=== PATIENT | male | born 1985 | race Caucasian/White ===

== ENCOUNTER 2021-11-09 08:34 | Inpatient (IN) | payer OTHER ==
[2021-11-09 09:22] VITALS: BMI 28.5
[2021-11-09] MEDS ORDERED: ACETAMINOPHEN 325 MG TABLET (FP) PO PRN ×2 (09:46)
[2021-11-09] MEDS ORDERED: IBUPROFEN 400 MG TABLET (FP) PO PRN (09:46)
[2021-11-09] MEDS ORDERED: LOPERAMIDE HCL 2 MG CAPSULE PO PRN (09:46)
[2021-11-09] MEDS ORDERED: MAGNESIUM CITRATE 300 ML BOTTLE PO PRN (09:46)
[2021-11-09] MEDS ORDERED: MAGNESIUM HYDROX 2400MG/30ML ORAL SUSPENSION 30 ML CUP PO PRN (09:46)
[2021-11-09] MEDS ORDERED: MAG HYDROX/AL HYDROX/SIMETH 30 ML UNIT-DOSE CUP PO PRN (09:46)
[2021-11-09] MEDS ORDERED: IBUPROFEN 600 MG TABLET (FP) PO PRN (09:46)
[2021-11-09] MEDS ORDERED: ONDANSETRON *ODT* 4 MG TABLET SL PRN (09:46)
[2021-11-09] MEDS ORDERED: BISMUTH SUBSALICYLATE 524 MG/30 ML PO PRN (09:46)
[2021-11-09] MEDS ORDERED: DICYCLOMINE HCL 10 MG CAPSULE PO PRN (09:46)
[2021-11-09] MEDS ORDERED: NICOTINE 10 MG CARTRIDGE (INHALER) IH PRN (09:46)
[2021-11-09] MEDS ORDERED: BENZOCAINE/MENTHOL (CHLORASEPTIC ) LOZENGE MM PRN (09:46)
[2021-11-09] MEDS ORDERED: METHOCARBAMOL 500 MG TABLET PO PRN (09:46)
[2021-11-09] MEDS ORDERED: chlordiazePOXIDE HCL 25 MG CAPSULE PO PRN (09:46)
[2021-11-09] MEDS ORDERED: PRENATAL VITAMINS W/ FOLIC ACID TABLET (FP) PO SCH (10:00)
[2021-11-09] MEDS: hydrOXYzine PAMOATE 25 MG CAPSULE (FP) PO SCH ×4 (11:18→22:47)
[2021-11-09] MEDS: chlordiazePOXIDE HCL 25 MG CAPSULE PO SCH ×3 (11:19→22:46)
[2021-11-09 14:20] LABS: HEMATOCRIT 45.5 % (35.4-49); HEMOGLOBIN 15.4 GM/dL (11.7-16.9); MCH 33.2 pg (25.7-33.7); MCHC 33.8 g/dl (32.0-35.9); MEAN CELL VOLUME 98.1 fl (80-96); MEAN PLT VOLUME 9.3 fl (7.5-11.1); PLATELET COUNT 83 10^3/uL (134-434); RBC 4.63 M/mm3 (4.00-5.60); RDW 13.1 % (11.9-15.9); WHITE BLOOD COUNT 5.5 K/mm3 (4.0-10.0)
[2021-11-09 14:34] LABS: CALCIUM 9.9 mg/dL (8.5-10.1)
[2021-11-09 14:35] LABS: ALBUMIN 4.2 g/dl (3.4-5.0); BLOOD UREA NITROGEN 13.3 mg/dL (7-18)
[2021-11-09 14:38] LABS: CREATININE 0.7 mg/dL (0.55-1.3)
[2021-11-09 14:40] LABS: TOT PROT 8.6 g/dl (6.4-8.2)
[2021-11-09] MEDS ORDERED: THIAMINE HCL 100 MG TABLET (FP) PO SCH (22:00)
[2021-11-09] MEDS ORDERED: MELATONIN 5 MG TABLETS PO SCH (22:00)
[2021-11-09] MEDS ORDERED: SUVOREXANT 10 MG TABLET PO PRN (22:00)
[2021-11-10 05:02] VITALS: BP 145/102; PULSE 94; RESP 18; TEMP 97.1
[2021-11-10] MEDS ORDERED: LORazepam 1 MG TABLET PO ONE (05:15)
[2021-11-10] MEDS ORDERED: LACTULOSE 20 GM/30 ML UDC (FOR ORAL USE ONLY) PO ONE (05:16)
[2021-11-10] MEDS ORDERED: LORazepam 1 MG TABLET PO PRN (05:22)
[2021-11-10] MEDS: chlordiazePOXIDE HCL 25 MG CAPSULE PO SCH (07:45)
[2021-11-10] MEDS: hydrOXYzine PAMOATE 25 MG CAPSULE (FP) PO SCH (07:46)
[2021-11-10] MEDS ORDERED: LACTULOSE 20 GM/30 ML UDC (FOR ORAL USE ONLY) PO SCH (10:00)
[2021-11-10] MEDS ORDERED: LORazepam 1 MG TABLET PO SCH (11:00)
[2021-11-11] MEDS ORDERED: chlordiazePOXIDE HCL 25 MG CAPSULE PO SCH (05:00)
[2021-11-12] MEDS ORDERED: chlordiazePOXIDE HCL 10 MG CAPSULE PO PRN
[2021-11-12] MEDS ORDERED: LORazepam 1 MG TABLET PO SCH (05:00)
[2021-11-12] MEDS ORDERED: chlordiazePOXIDE HCL 10 MG CAPSULE PO SCH (05:00)
[2021-11-13] MEDS ORDERED: LORazepam 0.5 MG TABLET PO PRN
[2021-11-13] MEDS ORDERED: LORazepam 0.5 MG TABLET PO SCH (05:00)
[2021-11-13] MEDS ORDERED: chlordiazePOXIDE HCL 10 MG CAPSULE PO SCH (05:00)
[2021-11-14] MEDS ORDERED: chlordiazePOXIDE HCL 10 MG CAPSULE PO ONE (05:00)
[2021-11-14] MEDS ORDERED: LORazepam 0.5 MG TABLET PO ONE (05:00)
== END 2021-11-10 11:50 | disposition short-term general hospital (02) | DRG 775 ==
LOC: YASAS 08:34 → Y6N 10:37
PROVIDERS: ADMIT Allergy & Immunology; ATTEND Surgery
PROC: HZ2ZZZZ Detoxification Services for Substance Abuse Treatment (ICD-10-PCS; principal; 2021-11-09)
DX: F10.230 Alcohol dependence with withdrawal, uncomplicated (principal); F10.282 Alcohol dependence with alcohol-induced sleep disorder; F10.280 Alcohol dependence with alcohol-induced anxiety disorder; F90.9 Attention-deficit hyperactivity disorder, unspecified type; F41.9 Anxiety disorder, unspecified; F32.A Depression, unspecified; J45.20 Mild intermittent asthma, uncomplicated; Z87.891 Personal history of nicotine dependence; Z56.0 Unemployment, unspecified
CPT/HCPCS: 36415; 80053; 85027; 86780; C9803-CS; U0003; U0005

== ENCOUNTER 2021-11-10 06:01 | Emergency (ER) | payer OTHER ==
[2021-11-10 06:10] VITALS: BP 147/103; PULSE 114; RESP 20; TEMP 98.4; BMI 27.1
== END 2021-11-10 08:08 | disposition home or self-care (01) ==
LOC: JER 06:01
DX: F10.20 Alcohol dependence, uncomplicated (principal); R74.01 Elevation of levels of liver transaminase levels
CPT/HCPCS: 99281-25

== ENCOUNTER 2021-11-12 08:16 | Inpatient (IN) | payer OTHER ==
[2021-11-12 10:02] VITALS: BMI 29.5
[2021-11-12] MEDS ORDERED: BENZOCAINE/MENTHOL (CHLORASEPTIC ) LOZENGE MM PRN (11:44)
[2021-11-12] MEDS ORDERED: MAGNESIUM HYDROX 2400MG/30ML ORAL SUSPENSION 30 ML CUP PO PRN (11:44)
[2021-11-12] MEDS ORDERED: MAGNESIUM CITRATE 300 ML BOTTLE PO PRN (11:44)
[2021-11-12] MEDS ORDERED: LOPERAMIDE HCL 2 MG CAPSULE PO PRN (11:44)
[2021-11-12] MEDS ORDERED: ONDANSETRON *ODT* 4 MG TABLET SL PRN (11:44)
[2021-11-12] MEDS ORDERED: BISMUTH SUBSALICYLATE 524 MG/30 ML PO PRN (11:44)
[2021-11-12] MEDS ORDERED: IBUPROFEN 400 MG TABLET (FP) PO PRN (11:44)
[2021-11-12] MEDS ORDERED: chlordiazePOXIDE HCL 25 MG CAPSULE PO PRN (11:44)
[2021-11-12] MEDS ORDERED: ACETAMINOPHEN 325 MG TABLET (FP) PO PRN ×2 (11:44)
[2021-11-12] MEDS ORDERED: IBUPROFEN 600 MG TABLET (FP) PO PRN (11:44)
[2021-11-12] MEDS ORDERED: MAG HYDROX/AL HYDROX/SIMETH 30 ML UNIT-DOSE CUP PO PRN (11:44)
[2021-11-12] MEDS ORDERED: DICYCLOMINE HCL 10 MG CAPSULE PO PRN (11:44)
[2021-11-12] MEDS: METHOCARBAMOL 500 MG TABLET PO PRN (12:38)
[2021-11-12] MEDS: chlordiazePOXIDE HCL 25 MG CAPSULE PO SCH ×3 (12:39→22:07)
[2021-11-12] MEDS: PRENATAL VITAMINS W/ FOLIC ACID TABLET (FP) PO SCH (13:22)
[2021-11-12] MEDS: hydrOXYzine PAMOATE 25 MG CAPSULE (FP) PO SCH ×3 (13:22→22:08)
[2021-11-12] MEDS: NICOTINE 10 MG CARTRIDGE (INHALER) IH PRN (21:20)
[2021-11-12] MEDS ORDERED: MELATONIN 5 MG TABLETS PO SCH (22:00)
[2021-11-12] MEDS: THIAMINE HCL 100 MG TABLET (FP) PO SCH (22:08)
[2021-11-13] MEDS: chlordiazePOXIDE HCL 25 MG CAPSULE PO SCH ×4 (05:23→22:01)
[2021-11-13] MEDS: hydrOXYzine PAMOATE 25 MG CAPSULE (FP) PO SCH ×5 (05:23→22:02)
[2021-11-13] MEDS: NICOTINE 10 MG CARTRIDGE (INHALER) IH PRN ×4 (09:22→22:02)
[2021-11-13] MEDS: PRENATAL VITAMINS W/ FOLIC ACID TABLET (FP) PO SCH (10:30)
[2021-11-13] MEDS: METHOCARBAMOL 500 MG TABLET PO PRN (10:30)
[2021-11-13 11:06] LABS: ALBUMIN 3.5 g/dl (3.4-5.0); BLOOD UREA NITROGEN 6.8 mg/dL (7-18); CALCIUM 9.3 mg/dL (8.5-10.1)
[2021-11-13 11:08] LABS: HEMATOCRIT 40.2 % (35.4-49); HEMOGLOBIN 13.5 GM/dL (11.7-16.9); MCH 33.3 pg (25.7-33.7); MCHC 33.5 g/dl (32.0-35.9); MEAN CELL VOLUME 99.4 fl (80-96); MEAN PLT VOLUME 9.3 fl (7.5-11.1); PLATELET COUNT 119 10^3/uL (134-434); RBC 4.04 M/mm3 (4.00-5.60); RDW 12.6 % (11.9-15.9); WHITE BLOOD COUNT 3.5 K/mm3 (4.0-10.0)
[2021-11-13 11:09] LABS: CREATININE 0.7 mg/dL (0.55-1.3)
[2021-11-13 11:10] LABS: BILIRUBIN,TOTAL 2.2 mg/dL (0.2-1); TOT PROT 7.3 g/dl (6.4-8.2)
[2021-11-13] MEDS: amLODIPine BESYLATE 2.5 MG TABLET (FP) PO SCH (12:03)
[2021-11-13] MEDS ORDERED: chlordiazePOXIDE HCL 25 MG CAPSULE PO ONE (14:00)
[2021-11-13] MEDS: SUVOREXANT 10 MG TABLET PO PRN (22:00)
[2021-11-13] MEDS: THIAMINE HCL 100 MG TABLET (FP) PO SCH (22:02)
[2021-11-14] MEDS: chlordiazePOXIDE HCL 25 MG CAPSULE PO SCH ×2 (05:27→10:53)
[2021-11-14] MEDS: hydrOXYzine PAMOATE 25 MG CAPSULE (FP) PO SCH ×6 (05:28→22:05)
[2021-11-14] MEDS: PRENATAL VITAMINS W/ FOLIC ACID TABLET (FP) PO SCH (08:59)
[2021-11-14] MEDS: METHOCARBAMOL 500 MG TABLET PO PRN (08:59)
[2021-11-14] MEDS: amLODIPine BESYLATE 2.5 MG TABLET (FP) PO SCH (08:59)
[2021-11-14] MEDS: NICOTINE 10 MG CARTRIDGE (INHALER) IH PRN ×2 (09:04→17:47)
[2021-11-14] MEDS: LORazepam 2 MG TABLET PO SCH ×2 (17:42→22:02)
[2021-11-14] MEDS: NICOTINE 21 MG/24 HOURS TOPICAL PATCH TD SCH (19:50)
[2021-11-14] MEDS: LORazepam 1 MG TABLET PO PRN (19:58)
[2021-11-14] MEDS: THIAMINE HCL 100 MG TABLET (FP) PO SCH (22:02)
[2021-11-14] MEDS: SUVOREXANT 10 MG TABLET PO PRN (22:04)
[2021-11-15] MEDS ORDERED: chlordiazePOXIDE HCL 10 MG CAPSULE PO PRN
[2021-11-15] MEDS ORDERED: chlordiazePOXIDE HCL 10 MG CAPSULE PO SCH (05:00)
[2021-11-15] MEDS: LORazepam 1 MG TABLET PO SCH ×4 (05:14→22:14)
[2021-11-15] MEDS: hydrOXYzine PAMOATE 25 MG CAPSULE (FP) PO SCH ×5 (05:14→22:14)
[2021-11-15] MEDS: NICOTINE 10 MG CARTRIDGE (INHALER) IH PRN ×2 (05:16→20:29)
[2021-11-15 09:42] LABS: CALCIUM 9.5 mg/dL (8.5-10.1)
[2021-11-15 09:43] LABS: ALBUMIN 3.5 g/dl (3.4-5.0); BLOOD UREA NITROGEN 10.3 mg/dL (7-18)
[2021-11-15 09:46] LABS: CREATININE 0.7 mg/dL (0.55-1.3)
[2021-11-15 09:48] LABS: BILIRUBIN,TOTAL 0.7 mg/dL (0.2-1); TOT PROT 7.1 g/dl (6.4-8.2)
[2021-11-15] MEDS: PRENATAL VITAMINS W/ FOLIC ACID TABLET (FP) PO SCH (10:09)
[2021-11-15] MEDS: METHOCARBAMOL 500 MG TABLET PO PRN ×2 (10:09→22:16)
[2021-11-15] MEDS: amLODIPine BESYLATE 2.5 MG TABLET (FP) PO SCH (10:09)
[2021-11-15] MEDS: NICOTINE 21 MG/24 HOURS TOPICAL PATCH TD SCH (10:13)
[2021-11-15 13:26] VITALS: RESP 18
[2021-11-15] MEDS: propRANOLol HCL 10 MG TABLET PO SCH ×2 (15:20→22:47)
[2021-11-15] MEDS: LORazepam 1 MG TABLET PO PRN (15:21)
[2021-11-15] MEDS: SUVOREXANT 10 MG TABLET PO PRN (22:14)
[2021-11-15] MEDS: THIAMINE HCL 100 MG TABLET (FP) PO SCH (22:47)
[2021-11-16] MEDS ORDERED: LORazepam 0.5 MG TABLET PO PRN
[2021-11-16] MEDS ORDERED: chlordiazePOXIDE HCL 10 MG CAPSULE PO SCH (05:00)
[2021-11-16] MEDS: hydrOXYzine PAMOATE 25 MG CAPSULE (FP) PO SCH ×3 (06:11→13:04)
[2021-11-16] MEDS: LORazepam 0.5 MG TABLET PO SCH ×2 (06:11→10:34)
[2021-11-16] MEDS: propRANOLol HCL 10 MG TABLET PO SCH ×2 (06:45→13:16)
[2021-11-16] MEDS: NICOTINE 21 MG/24 HOURS TOPICAL PATCH TD SCH (10:34)
[2021-11-16] MEDS: METHOCARBAMOL 500 MG TABLET PO PRN (10:34)
[2021-11-16] MEDS: PRENATAL VITAMINS W/ FOLIC ACID TABLET (FP) PO SCH (10:34)
[2021-11-16] MEDS: NICOTINE 10 MG CARTRIDGE (INHALER) IH PRN (11:11)
[2021-11-16 14:13] VITALS: BP 106/74; PULSE 78; TEMP 97.5
[2021-11-17] MEDS ORDERED: chlordiazePOXIDE HCL 10 MG CAPSULE PO ONE (05:00)
== END 2021-11-16 13:30 | disposition other institution (70) | DRG 775 ==
LOC: YASAS 08:16 → Y6N 12:24
PROVIDERS: ADMIT Allergy & Immunology; ATTEND Surgery
PROC: HZ2ZZZZ Detoxification Services for Substance Abuse Treatment (ICD-10-PCS; principal; 2021-11-12)
DX: F10.230 Alcohol dependence with withdrawal, uncomplicated (principal); F10.280 Alcohol dependence with alcohol-induced anxiety disorder; F10.282 Alcohol dependence with alcohol-induced sleep disorder; F42.9 Obsessive-compulsive disorder, unspecified; F90.9 Attention-deficit hyperactivity disorder, unspecified type; J45.20 Mild intermittent asthma, uncomplicated; J30.2 Other seasonal allergic rhinitis; R74.01 Elevation of levels of liver transaminase levels; Z87.891 Personal history of nicotine dependence
CPT/HCPCS: 36415; 80053; 85027; 86780; 87811; C9803-CS; Q0162; U0003; U0005

== ENCOUNTER 2021-11-16 13:47 | Inpatient (IN) | payer OTHER ==
[2021-11-16] MEDS ORDERED: ACETAMINOPHEN 325 MG TABLET (FP) PO PRN (14:37)
[2021-11-16] MEDS ORDERED: P-EPHED 60MG/TRIPROLIDI 2.5MG TABLET PO PRN (14:37)
[2021-11-16] MEDS ORDERED: MAGNESIUM HYDROX 2400MG/30ML ORAL SUSPENSION 30 ML CUP PO PRN (14:37)
[2021-11-16] MEDS ORDERED: LOPERAMIDE HCL 2 MG CAPSULE PO PRN (14:37)
[2021-11-16] MEDS ORDERED: guaiFENesin 200 MG/10 ML 10 ML UNIT-DOSE CUPS PO PRN (14:37)
[2021-11-16] MEDS ORDERED: MAGNESIUM CITRATE 300 ML BOTTLE PO PRN (14:37)
[2021-11-16] MEDS ORDERED: BENZOCAINE/MENTHOL (CHLORASEPTIC ) LOZENGE MM PRN (14:37)
[2021-11-16] MEDS ORDERED: MAG HYDROX/AL HYDROX/SIMETH 30 ML UNIT-DOSE CUP PO PRN (14:37)
[2021-11-16] MEDS ORDERED: TUBERCULIN PPD 5 TU/0.1ML VIAL ID ONE (15:07)
[2021-11-16] MEDS: hydrOXYzine PAMOATE 25 MG CAPSULE (FP) PO PRN (15:15)
[2021-11-16] MEDS: MELATONIN 5 MG TABLETS PO SCH (21:09)
[2021-11-16] MEDS: THIAMINE HCL 100 MG TABLET (FP) PO SCH (21:09)
[2021-11-16] MEDS: METHOCARBAMOL 500 MG TABLET PO PRN (21:09)
[2021-11-16] MEDS: SUVOREXANT 10 MG TABLET PO PRN (21:10)
[2021-11-17] MEDS: hydrOXYzine PAMOATE 25 MG CAPSULE (FP) PO PRN ×5 (06:16→21:10)
[2021-11-17] MEDS: METHOCARBAMOL 500 MG TABLET PO PRN ×2 (06:16→21:10)
[2021-11-17] MEDS: PRENATAL VITAMINS W/ FOLIC ACID TABLET (FP) PO SCH (09:41)
[2021-11-17] MEDS: NICOTINE 7 MG/24 HOURS TOPICAL PATCH TD SCH (09:42)
[2021-11-17] MEDS: NICOTINE 10 MG CARTRIDGE (INHALER) IH PRN (18:40)
[2021-11-17] MEDS: MELATONIN 5 MG TABLETS PO SCH (21:10)
[2021-11-17] MEDS: THIAMINE HCL 100 MG TABLET (FP) PO SCH (21:10)
[2021-11-17] MEDS: SUVOREXANT 10 MG TABLET PO PRN (21:10)
[2021-11-18] MEDS: hydrOXYzine PAMOATE 25 MG CAPSULE (FP) PO PRN ×5 (06:09→21:05)
[2021-11-18] MEDS: NICOTINE 7 MG/24 HOURS TOPICAL PATCH TD SCH (09:43)
[2021-11-18] MEDS: PRENATAL VITAMINS W/ FOLIC ACID TABLET (FP) PO SCH (09:43)
[2021-11-18] MEDS: NICOTINE 10 MG CARTRIDGE (INHALER) IH PRN (15:52)
[2021-11-18] MEDS: THIAMINE HCL 100 MG TABLET (FP) PO SCH (21:04)
[2021-11-18] MEDS: MELATONIN 5 MG TABLETS PO SCH (21:05)
[2021-11-18] MEDS: SUVOREXANT 10 MG TABLET PO PRN (21:05)
[2021-11-18] MEDS: METHOCARBAMOL 500 MG TABLET PO PRN (21:05)
[2021-11-19] MEDS: hydrOXYzine PAMOATE 25 MG CAPSULE (FP) PO PRN (06:21)
[2021-11-19] MEDS: NICOTINE 10 MG CARTRIDGE (INHALER) IH PRN ×2 (07:44→11:38)
[2021-11-19] MEDS: PRENATAL VITAMINS W/ FOLIC ACID TABLET (FP) PO SCH (09:51)
[2021-11-19] MEDS: NICOTINE 7 MG/24 HOURS TOPICAL PATCH TD SCH (09:53)
[2021-11-19] MEDS: hydrOXYzine PAMOATE 50 MG CAPSULE (FP) PO PRN ×2 (14:23→18:59)
[2021-11-19] MEDS: MELATONIN 5 MG TABLETS PO SCH (21:13)
[2021-11-19] MEDS: THIAMINE HCL 100 MG TABLET (FP) PO SCH (21:14)
[2021-11-19] MEDS: SUVOREXANT 15 MG TABLET PO PRN (21:15)
[2021-11-20] MEDS: METHOCARBAMOL 500 MG TABLET PO PRN ×2 (06:08→21:04)
[2021-11-20] MEDS: hydrOXYzine PAMOATE 50 MG CAPSULE (FP) PO PRN ×4 (06:08→18:28)
[2021-11-20] MEDS: NICOTINE 10 MG CARTRIDGE (INHALER) IH PRN (07:38)
[2021-11-20] MEDS: PRENATAL VITAMINS W/ FOLIC ACID TABLET (FP) PO SCH (09:51)
[2021-11-20] MEDS: NICOTINE 21 MG/24 HOURS TOPICAL PATCH TD SCH (09:52)
[2021-11-20] MEDS: SUVOREXANT 15 MG TABLET PO PRN (21:03)
[2021-11-20] MEDS: MELATONIN 5 MG TABLETS PO SCH (21:04)
[2021-11-20] MEDS: THIAMINE HCL 100 MG TABLET (FP) PO SCH (21:04)
[2021-11-21] MEDS: hydrOXYzine PAMOATE 50 MG CAPSULE (FP) PO PRN ×4 (06:12→21:09)
[2021-11-21] MEDS: METHOCARBAMOL 500 MG TABLET PO PRN ×3 (06:12→21:09)
[2021-11-21] MEDS: PRENATAL VITAMINS W/ FOLIC ACID TABLET (FP) PO SCH (09:54)
[2021-11-21] MEDS: NICOTINE 21 MG/24 HOURS TOPICAL PATCH TD SCH (09:54)
[2021-11-21] MEDS: NICOTINE 10 MG CARTRIDGE (INHALER) IH PRN ×2 (10:18→16:29)
[2021-11-21] MEDS: MELATONIN 5 MG TABLETS PO SCH (21:08)
[2021-11-21] MEDS: THIAMINE HCL 100 MG TABLET (FP) PO SCH (21:08)
[2021-11-22] MEDS: hydrOXYzine PAMOATE 50 MG CAPSULE (FP) PO PRN ×4 (06:27→19:08)
[2021-11-22] MEDS: METHOCARBAMOL 500 MG TABLET PO PRN (06:27)
[2021-11-22] MEDS: IBUPROFEN 400 MG TABLET (FP) PO PRN ×2 (06:27→19:07)
[2021-11-22] MEDS: NICOTINE 10 MG CARTRIDGE (INHALER) IH PRN ×2 (07:19→19:08)
[2021-11-22] MEDS: NICOTINE 21 MG/24 HOURS TOPICAL PATCH TD SCH (09:34)
[2021-11-22] MEDS: PRENATAL VITAMINS W/ FOLIC ACID TABLET (FP) PO SCH (09:34)
[2021-11-22] MEDS: LIDOCAINE 5% TOPICAL PATCH TP SCH (14:12)
[2021-11-22] MEDS ORDERED: METHOCARBAMOL 750 MG TABLET PO PRN (16:13)
[2021-11-22] MEDS: METHOCARBAMOL 750 MG TABLET PO PRN (17:31)
[2021-11-22] MEDS: SUVOREXANT 15 MG TABLET PO PRN (21:15)
[2021-11-22] MEDS: MELATONIN 5 MG TABLETS PO SCH (21:16)
[2021-11-22] MEDS: LIDOCAINE PATCH REMOVAL MC SCH (21:16)
[2021-11-22] MEDS: METHYL SALICYLATE/MENTHOL OINT 30 GM TUBE TP SCH (21:16)
[2021-11-22] MEDS: THIAMINE HCL 100 MG TABLET (FP) PO SCH (21:16)
[2021-11-23] MEDS: NICOTINE 10 MG CARTRIDGE (INHALER) IH PRN ×3 (06:20→19:47)
[2021-11-23] MEDS: METHOCARBAMOL 750 MG TABLET PO PRN ×3 (06:22→21:16)
[2021-11-23] MEDS: IBUPROFEN 400 MG TABLET (FP) PO PRN ×2 (06:22→14:11)
[2021-11-23] MEDS: hydrOXYzine PAMOATE 50 MG CAPSULE (FP) PO PRN ×4 (06:22→21:16)
[2021-11-23] MEDS: LIDOCAINE 5% TOPICAL PATCH TP SCH (09:39)
[2021-11-23] MEDS: PRENATAL VITAMINS W/ FOLIC ACID TABLET (FP) PO SCH (09:39)
[2021-11-23] MEDS: NICOTINE 21 MG/24 HOURS TOPICAL PATCH TD SCH (09:39)
[2021-11-23] MEDS: THIAMINE HCL 100 MG TABLET (FP) PO SCH (21:16)
[2021-11-23] MEDS: SUVOREXANT 15 MG TABLET PO PRN (21:17)
[2021-11-23] MEDS: MELATONIN 5 MG TABLETS PO SCH (21:18)
[2021-11-23] MEDS: LIDOCAINE PATCH REMOVAL MC SCH (22:09)
[2021-11-23] MEDS: METHYL SALICYLATE/MENTHOL OINT 30 GM TUBE TP SCH (22:09)
[2021-11-24] MEDS: IBUPROFEN 400 MG TABLET (FP) PO PRN ×2 (06:18→21:42)
[2021-11-24] MEDS: hydrOXYzine PAMOATE 50 MG CAPSULE (FP) PO PRN (06:19)
[2021-11-24] MEDS: NICOTINE 21 MG/24 HOURS TOPICAL PATCH TD SCH (09:39)
[2021-11-24] MEDS: LIDOCAINE 5% TOPICAL PATCH TP SCH (09:39)
[2021-11-24] MEDS: PRENATAL VITAMINS W/ FOLIC ACID TABLET (FP) PO SCH (09:39)
[2021-11-24] MEDS: METHOCARBAMOL 750 MG TABLET PO PRN ×2 (09:41→21:41)
[2021-11-24] MEDS: SUVOREXANT 15 MG TABLET PO PRN (21:39)
[2021-11-24] MEDS: THIAMINE HCL 100 MG TABLET (FP) PO SCH (21:41)
[2021-11-24] MEDS: NICOTINE 10 MG CARTRIDGE (INHALER) IH PRN (21:43)
[2021-11-24] MEDS: LIDOCAINE PATCH REMOVAL MC SCH (21:44)
[2021-11-24] MEDS: MELATONIN 5 MG TABLETS PO SCH (22:27)
[2021-11-24] MEDS: METHYL SALICYLATE/MENTHOL OINT 30 GM TUBE TP SCH (22:27)
[2021-11-25] MEDS: IBUPROFEN 400 MG TABLET (FP) PO PRN ×2 (06:29→22:07)
[2021-11-25] MEDS: hydrOXYzine PAMOATE 50 MG CAPSULE (FP) PO PRN ×2 (06:29→22:09)
[2021-11-25] MEDS: METHOCARBAMOL 750 MG TABLET PO PRN ×2 (06:30→22:07)
[2021-11-25] MEDS: NICOTINE 21 MG/24 HOURS TOPICAL PATCH TD SCH (09:40)
[2021-11-25] MEDS: PRENATAL VITAMINS W/ FOLIC ACID TABLET (FP) PO SCH (09:40)
[2021-11-25] MEDS: LIDOCAINE 5% TOPICAL PATCH TP SCH (09:40)
[2021-11-25] MEDS: NICOTINE 10 MG CARTRIDGE (INHALER) IH PRN ×2 (09:41→17:00)
[2021-11-25] MEDS ORDERED: SUVOREXANT 10 MG TABLET PO PRN (22:00)
[2021-11-25] MEDS: MELATONIN 5 MG TABLETS PO SCH (22:05)
[2021-11-25] MEDS: THIAMINE HCL 100 MG TABLET (FP) PO SCH (22:07)
[2021-11-25] MEDS: LIDOCAINE PATCH REMOVAL MC SCH (22:20)
[2021-11-25] MEDS: METHYL SALICYLATE/MENTHOL OINT 30 GM TUBE TP SCH (22:20)
[2021-11-26] MEDS: METHOCARBAMOL 750 MG TABLET PO PRN ×2 (10:06→21:11)
[2021-11-26] MEDS: PRENATAL VITAMINS W/ FOLIC ACID TABLET (FP) PO SCH (10:06)
[2021-11-26] MEDS: LIDOCAINE 5% TOPICAL PATCH TP SCH (10:06)
[2021-11-26] MEDS: NICOTINE 21 MG/24 HOURS TOPICAL PATCH TD SCH (10:06)
[2021-11-26] MEDS: hydrOXYzine PAMOATE 50 MG CAPSULE (FP) PO PRN ×2 (10:07→21:11)
[2021-11-26] MEDS: NICOTINE 10 MG CARTRIDGE (INHALER) IH PRN ×2 (13:12→21:15)
[2021-11-26 13:29] LABS: ALBUMIN 3.3 g/dl (3.4-5.0); BLOOD UREA NITROGEN 12.9 mg/dL (7-18)
[2021-11-26 13:32] LABS: CREATININE 0.9 mg/dL (0.55-1.3)
[2021-11-26 13:34] LABS: BILIRUBIN,TOTAL 0.6 mg/dL (0.2-1); TOT PROT 6.8 g/dl (6.4-8.2)
[2021-11-26] MEDS: IBUPROFEN 400 MG TABLET (FP) PO PRN (21:11)
[2021-11-26] MEDS: THIAMINE HCL 100 MG TABLET (FP) PO SCH (21:11)
[2021-11-26] MEDS: METHYL SALICYLATE/MENTHOL OINT 30 GM TUBE TP SCH (21:13)
[2021-11-26] MEDS: MELATONIN 5 MG TABLETS PO SCH (21:13)
[2021-11-26] MEDS: LIDOCAINE PATCH REMOVAL MC SCH (21:13)
[2021-11-26] MEDS: SUVOREXANT 10 MG TABLET PO PRN (21:13)
[2021-11-27] MEDS: hydrOXYzine PAMOATE 50 MG CAPSULE (FP) PO PRN ×3 (06:22→21:13)
[2021-11-27] MEDS: IBUPROFEN 400 MG TABLET (FP) PO PRN (06:22)
[2021-11-27] MEDS: METHOCARBAMOL 750 MG TABLET PO PRN ×2 (06:23→21:13)
[2021-11-27] MEDS: PRENATAL VITAMINS W/ FOLIC ACID TABLET (FP) PO SCH (09:36)
[2021-11-27] MEDS: NICOTINE 21 MG/24 HOURS TOPICAL PATCH TD SCH (09:36)
[2021-11-27] MEDS: LIDOCAINE 5% TOPICAL PATCH TP SCH (09:36)
[2021-11-27] MEDS: NICOTINE 10 MG CARTRIDGE (INHALER) IH PRN ×3 (09:38→22:21)
[2021-11-27] MEDS: SUVOREXANT 10 MG TABLET PO PRN (21:13)
[2021-11-27] MEDS: MELATONIN 5 MG TABLETS PO SCH (21:14)
[2021-11-27] MEDS: LIDOCAINE PATCH REMOVAL MC SCH (21:14)
[2021-11-27] MEDS: THIAMINE HCL 100 MG TABLET (FP) PO SCH (21:14)
[2021-11-27] MEDS: METHYL SALICYLATE/MENTHOL OINT 30 GM TUBE TP SCH (21:15)
[2021-11-28] MEDS: IBUPROFEN 400 MG TABLET (FP) PO PRN (06:43)
[2021-11-28] MEDS: hydrOXYzine PAMOATE 50 MG CAPSULE (FP) PO PRN ×3 (06:44→22:04)
[2021-11-28 07:15] VITALS: RESP 18
[2021-11-28] MEDS: METHOCARBAMOL 750 MG TABLET PO PRN ×2 (09:39→22:04)
[2021-11-28] MEDS: LIDOCAINE 5% TOPICAL PATCH TP SCH (09:40)
[2021-11-28] MEDS: PRENATAL VITAMINS W/ FOLIC ACID TABLET (FP) PO SCH (09:40)
[2021-11-28] MEDS: NICOTINE 21 MG/24 HOURS TOPICAL PATCH TD SCH (09:40)
[2021-11-28] MEDS: NICOTINE 10 MG CARTRIDGE (INHALER) IH PRN ×2 (11:07→19:05)
[2021-11-28] MEDS: SUVOREXANT 10 MG TABLET PO PRN (22:03)
[2021-11-28] MEDS: MELATONIN 5 MG TABLETS PO SCH (22:04)
[2021-11-28] MEDS: THIAMINE HCL 100 MG TABLET (FP) PO SCH (22:04)
[2021-11-28] MEDS: METHYL SALICYLATE/MENTHOL OINT 30 GM TUBE TP SCH (22:05)
[2021-11-28] MEDS: LIDOCAINE PATCH REMOVAL MC SCH (23:51)
[2021-11-29] MEDS: hydrOXYzine PAMOATE 50 MG CAPSULE (FP) PO PRN ×2 (06:10→22:04)
[2021-11-29] MEDS: METHOCARBAMOL 750 MG TABLET PO PRN ×2 (06:10→22:03)
[2021-11-29] MEDS: LIDOCAINE 5% TOPICAL PATCH TP SCH (09:36)
[2021-11-29] MEDS: PRENATAL VITAMINS W/ FOLIC ACID TABLET (FP) PO SCH (09:36)
[2021-11-29] MEDS: NICOTINE 21 MG/24 HOURS TOPICAL PATCH TD SCH (09:36)
[2021-11-29] MEDS: NICOTINE 10 MG CARTRIDGE (INHALER) IH PRN ×2 (11:06→22:05)
[2021-11-29] MEDS: THIAMINE HCL 100 MG TABLET (FP) PO SCH (22:03)
[2021-11-29] MEDS: SUVOREXANT 10 MG TABLET PO PRN (22:03)
[2021-11-29] MEDS: MELATONIN 5 MG TABLETS PO SCH (22:04)
[2021-11-29] MEDS: METHYL SALICYLATE/MENTHOL OINT 30 GM TUBE TP SCH (22:05)
[2021-11-29] MEDS: LIDOCAINE PATCH REMOVAL MC SCH (22:06)
[2021-11-30] MEDS: PRENATAL VITAMINS W/ FOLIC ACID TABLET (FP) PO SCH (09:42)
[2021-11-30] MEDS: METHOCARBAMOL 750 MG TABLET PO PRN ×2 (09:42→21:47)
[2021-11-30] MEDS: hydrOXYzine PAMOATE 50 MG CAPSULE (FP) PO PRN ×2 (09:42→21:47)
[2021-11-30] MEDS: NICOTINE 21 MG/24 HOURS TOPICAL PATCH TD SCH (09:43)
[2021-11-30] MEDS: LIDOCAINE 5% TOPICAL PATCH TP SCH (09:44)
[2021-11-30] MEDS: NICOTINE 10 MG CARTRIDGE (INHALER) IH PRN ×2 (10:17→15:52)
[2021-11-30] MEDS: SUVOREXANT 10 MG TABLET PO PRN (21:47)
[2021-11-30] MEDS: MELATONIN 5 MG TABLETS PO SCH (21:47)
[2021-11-30] MEDS: METHYL SALICYLATE/MENTHOL OINT 30 GM TUBE TP SCH (21:47)
[2021-11-30] MEDS: THIAMINE HCL 100 MG TABLET (FP) PO SCH (21:47)
[2021-11-30] MEDS: LIDOCAINE PATCH REMOVAL MC SCH (21:48)
[2021-11-30] MEDS: IBUPROFEN 400 MG TABLET (FP) PO PRN (21:50)
[2021-12-01] MEDS: PRENATAL VITAMINS W/ FOLIC ACID TABLET (FP) PO SCH (09:45)
[2021-12-01] MEDS: LIDOCAINE 5% TOPICAL PATCH TP SCH (09:46)
[2021-12-01] MEDS: NICOTINE 21 MG/24 HOURS TOPICAL PATCH TD SCH (09:46)
[2021-12-01] MEDS: hydrOXYzine PAMOATE 50 MG CAPSULE (FP) PO PRN ×3 (09:49→22:23)
[2021-12-01] MEDS: METHOCARBAMOL 750 MG TABLET PO PRN ×2 (09:49→22:23)
[2021-12-01] MEDS: NICOTINE 10 MG CARTRIDGE (INHALER) IH PRN ×3 (09:55→22:23)
[2021-12-01] MEDS: SUVOREXANT 10 MG TABLET PO PRN (22:23)
[2021-12-01] MEDS: THIAMINE HCL 100 MG TABLET (FP) PO SCH (22:23)
[2021-12-01] MEDS: MELATONIN 5 MG TABLETS PO SCH (22:23)
[2021-12-01] MEDS: METHYL SALICYLATE/MENTHOL OINT 30 GM TUBE TP SCH (22:23)
[2021-12-01] MEDS: LIDOCAINE PATCH REMOVAL MC SCH (22:24)
[2021-12-02] MEDS: hydrOXYzine PAMOATE 50 MG CAPSULE (FP) PO PRN ×2 (06:59→21:47)
[2021-12-02] MEDS: IBUPROFEN 400 MG TABLET (FP) PO PRN (06:59)
[2021-12-02] MEDS: METHOCARBAMOL 750 MG TABLET PO PRN ×2 (07:00→21:45)
[2021-12-02] MEDS: LIDOCAINE 5% TOPICAL PATCH TP SCH (11:04)
[2021-12-02] MEDS: NICOTINE 21 MG/24 HOURS TOPICAL PATCH TD SCH (11:04)
[2021-12-02] MEDS: PRENATAL VITAMINS W/ FOLIC ACID TABLET (FP) PO SCH (11:04)
[2021-12-02] MEDS: NICOTINE 10 MG CARTRIDGE (INHALER) IH PRN ×2 (11:05→18:22)
[2021-12-02] MEDS: LIDOCAINE PATCH REMOVAL MC SCH (21:45)
[2021-12-02] MEDS: THIAMINE HCL 100 MG TABLET (FP) PO SCH (21:45)
[2021-12-02] MEDS: MELATONIN 5 MG TABLETS PO SCH (21:45)
[2021-12-02] MEDS: METHYL SALICYLATE/MENTHOL OINT 30 GM TUBE TP SCH (21:45)
[2021-12-02] MEDS: SUVOREXANT 10 MG TABLET PO PRN (21:46)
[2021-12-03] MEDS: hydrOXYzine PAMOATE 50 MG CAPSULE (FP) PO PRN ×2 (06:09→21:56)
[2021-12-03] MEDS: IBUPROFEN 400 MG TABLET (FP) PO PRN (06:09)
[2021-12-03] MEDS: METHOCARBAMOL 750 MG TABLET PO PRN ×2 (06:10→21:56)
[2021-12-03] MEDS: LIDOCAINE 5% TOPICAL PATCH TP SCH (09:43)
[2021-12-03] MEDS: NICOTINE 21 MG/24 HOURS TOPICAL PATCH TD SCH (09:43)
[2021-12-03] MEDS: PRENATAL VITAMINS W/ FOLIC ACID TABLET (FP) PO SCH (09:43)
[2021-12-03] MEDS: NICOTINE 10 MG CARTRIDGE (INHALER) IH PRN ×2 (09:46→18:03)
[2021-12-03] MEDS ORDERED: COLLOIDAL OATMEAL 1 BAR EACH TP PRN (10:23)
[2021-12-03 11:18] LABS: ALBUMIN 3.6 g/dl (3.4-5.0); BLOOD UREA NITROGEN 15.8 mg/dL (7-18); CALCIUM 9.3 mg/dL (8.5-10.1)
[2021-12-03 11:21] LABS: CREATININE 0.9 mg/dL (0.55-1.3)
[2021-12-03 11:23] LABS: BILIRUBIN,TOTAL 0.6 mg/dL (0.2-1); TOT PROT 7.2 g/dl (6.4-8.2)
[2021-12-03] MEDS: SUVOREXANT 10 MG TABLET PO PRN (21:56)
[2021-12-03] MEDS: MELATONIN 5 MG TABLETS PO SCH (21:56)
[2021-12-03] MEDS: THIAMINE HCL 100 MG TABLET (FP) PO SCH (21:56)
[2021-12-03] MEDS: METHYL SALICYLATE/MENTHOL OINT 30 GM TUBE TP SCH (21:57)
[2021-12-03] MEDS: LIDOCAINE PATCH REMOVAL MC SCH (21:57)
[2021-12-04] MEDS: PRENATAL VITAMINS W/ FOLIC ACID TABLET (FP) PO SCH (09:40)
[2021-12-04] MEDS: NICOTINE 21 MG/24 HOURS TOPICAL PATCH TD SCH (09:40)
[2021-12-04] MEDS: LIDOCAINE 5% TOPICAL PATCH TP SCH (09:40)
[2021-12-04] MEDS: METHOCARBAMOL 750 MG TABLET PO PRN (09:41)
[2021-12-04] MEDS: hydrOXYzine PAMOATE 50 MG CAPSULE (FP) PO PRN ×2 (09:41→21:53)
[2021-12-04] MEDS: IBUPROFEN 400 MG TABLET (FP) PO PRN (09:42)
[2021-12-04] MEDS ORDERED: TIZANIDINE HCL 4 MG TABLET PO PRN (11:50)
[2021-12-04] MEDS ORDERED: NALTREXONE HCL 50 MG TABLET PO ONE (15:00)
[2021-12-04] MEDS: NICOTINE 10 MG CARTRIDGE (INHALER) IH PRN ×2 (18:04→22:52)
[2021-12-04] MEDS: BACLOFEN 10 MG TABLET (FP) PO PRN (21:53)
[2021-12-04] MEDS: THIAMINE HCL 100 MG TABLET (FP) PO SCH (21:53)
[2021-12-04] MEDS: SUVOREXANT 10 MG TABLET PO PRN (21:53)
[2021-12-04] MEDS: LIDOCAINE PATCH REMOVAL MC SCH (22:04)
[2021-12-04] MEDS: MELATONIN 5 MG TABLETS PO SCH (22:04)
[2021-12-04] MEDS: METHYL SALICYLATE/MENTHOL OINT 30 GM TUBE TP SCH (22:04)
[2021-12-05] MEDS: NICOTINE 21 MG/24 HOURS TOPICAL PATCH TD SCH (09:45)
[2021-12-05] MEDS: PRENATAL VITAMINS W/ FOLIC ACID TABLET (FP) PO SCH (09:45)
[2021-12-05] MEDS: LIDOCAINE 5% TOPICAL PATCH TP SCH (09:45)
[2021-12-05] MEDS: BACLOFEN 10 MG TABLET (FP) PO PRN ×2 (09:46→21:55)
[2021-12-05] MEDS: IBUPROFEN 600 MG TABLET (FP) PO PRN ×2 (09:49→21:56)
[2021-12-05] MEDS: hydrOXYzine PAMOATE 50 MG CAPSULE (FP) PO PRN ×2 (09:58→21:52)
[2021-12-05] MEDS ORDERED: NALTREXONE HCL 50 MG TABLET PO ONE (10:00)
[2021-12-05] MEDS: NICOTINE 10 MG CARTRIDGE (INHALER) IH PRN ×2 (18:16→22:30)
[2021-12-05] MEDS: SUVOREXANT 15 MG TABLET PO PRN (21:51)
[2021-12-05] MEDS: MELATONIN 5 MG TABLETS PO SCH (21:52)
[2021-12-05] MEDS: THIAMINE HCL 100 MG TABLET (FP) PO SCH (21:52)
[2021-12-05] MEDS: LIDOCAINE PATCH REMOVAL MC SCH (21:53)
[2021-12-05] MEDS: METHYL SALICYLATE/MENTHOL OINT 30 GM TUBE TP SCH (21:53)
[2021-12-06] MEDS: LIDOCAINE 5% TOPICAL PATCH TP SCH (09:46)
[2021-12-06] MEDS: hydrOXYzine PAMOATE 50 MG CAPSULE (FP) PO PRN ×2 (09:46→22:08)
[2021-12-06] MEDS: PRENATAL VITAMINS W/ FOLIC ACID TABLET (FP) PO SCH (09:46)
[2021-12-06] MEDS: NALTREXONE HCL 50 MG TABLET PO SCH (09:46)
[2021-12-06] MEDS: NICOTINE 21 MG/24 HOURS TOPICAL PATCH TD SCH (09:46)
[2021-12-06] MEDS: IBUPROFEN 600 MG TABLET (FP) PO PRN (09:47)
[2021-12-06] MEDS: BACLOFEN 10 MG TABLET (FP) PO PRN ×2 (09:47→22:08)
[2021-12-06] MEDS: NICOTINE 10 MG CARTRIDGE (INHALER) IH PRN ×3 (09:58→22:14)
[2021-12-06] MEDS: SUVOREXANT 15 MG TABLET PO PRN (22:08)
[2021-12-06] MEDS: THIAMINE HCL 100 MG TABLET (FP) PO SCH (22:08)
[2021-12-06] MEDS: MELATONIN 5 MG TABLETS PO SCH (22:11)
[2021-12-06] MEDS: METHYL SALICYLATE/MENTHOL OINT 30 GM TUBE TP SCH (23:05)
[2021-12-06] MEDS: LIDOCAINE PATCH REMOVAL MC SCH (23:13)
[2021-12-07] MEDS: PRENATAL VITAMINS W/ FOLIC ACID TABLET (FP) PO SCH (10:08)
[2021-12-07] MEDS: NICOTINE 21 MG/24 HOURS TOPICAL PATCH TD SCH (10:08)
[2021-12-07] MEDS: LIDOCAINE 5% TOPICAL PATCH TP SCH (10:08)
[2021-12-07] MEDS: NALTREXONE HCL 50 MG TABLET PO SCH (10:09)
[2021-12-07] MEDS: BACLOFEN 10 MG TABLET (FP) PO PRN ×3 (10:10→22:01)
[2021-12-07] MEDS: IBUPROFEN 600 MG TABLET (FP) PO PRN (10:10)
[2021-12-07] MEDS: hydrOXYzine PAMOATE 50 MG CAPSULE (FP) PO PRN ×3 (10:10→22:01)
[2021-12-07] MEDS: NICOTINE 10 MG CARTRIDGE (INHALER) IH PRN ×2 (14:03→22:02)
[2021-12-07] MEDS: THIAMINE HCL 100 MG TABLET (FP) PO SCH (22:01)
[2021-12-07] MEDS: SUVOREXANT 15 MG TABLET PO PRN (22:01)
[2021-12-07] MEDS: MELATONIN 5 MG TABLETS PO SCH (22:02)
[2021-12-07] MEDS: LIDOCAINE PATCH REMOVAL MC SCH (22:04)
[2021-12-07] MEDS: METHYL SALICYLATE/MENTHOL OINT 30 GM TUBE TP SCH (22:04)
[2021-12-08] MEDS: NALTREXONE HCL 50 MG TABLET PO SCH (09:48)
[2021-12-08] MEDS: hydrOXYzine PAMOATE 50 MG CAPSULE (FP) PO PRN ×2 (09:48→22:17)
[2021-12-08] MEDS: PRENATAL VITAMINS W/ FOLIC ACID TABLET (FP) PO SCH (09:48)
[2021-12-08] MEDS: IBUPROFEN 600 MG TABLET (FP) PO PRN (09:49)
[2021-12-08] MEDS: NICOTINE 10 MG CARTRIDGE (INHALER) IH PRN ×3 (09:54→22:19)
[2021-12-08] MEDS: NICOTINE 21 MG/24 HOURS TOPICAL PATCH TD SCH (11:34)
[2021-12-08] MEDS: LIDOCAINE 5% TOPICAL PATCH TP SCH (11:37)
[2021-12-08] MEDS: BACLOFEN 10 MG TABLET (FP) PO PRN ×2 (11:38→22:18)
[2021-12-08] MEDS: THIAMINE HCL 100 MG TABLET (FP) PO SCH (22:17)
[2021-12-08] MEDS: SUVOREXANT 5 MG TABLET PO PRN (22:17)
[2021-12-08] MEDS: MELATONIN 5 MG TABLETS PO SCH (22:18)
[2021-12-08] MEDS: LIDOCAINE PATCH REMOVAL MC SCH (22:18)
[2021-12-08] MEDS: GABAPENTIN 100 MG CAPSULE PO SCH (22:19)
[2021-12-08] MEDS: METHYL SALICYLATE/MENTHOL OINT 30 GM TUBE TP SCH (22:27)
[2021-12-09] MEDS: NALTREXONE HCL 50 MG TABLET PO SCH (09:53)
[2021-12-09] MEDS: PRENATAL VITAMINS W/ FOLIC ACID TABLET (FP) PO SCH (09:53)
[2021-12-09] MEDS: GABAPENTIN 100 MG CAPSULE PO SCH ×2 (09:53→22:24)
[2021-12-09] MEDS: NICOTINE 21 MG/24 HOURS TOPICAL PATCH TD SCH (09:54)
[2021-12-09] MEDS: LIDOCAINE 5% TOPICAL PATCH TP SCH (09:54)
[2021-12-09] MEDS: BACLOFEN 10 MG TABLET (FP) PO PRN ×2 (09:54→14:36)
[2021-12-09] MEDS: IBUPROFEN 600 MG TABLET (FP) PO PRN (09:56)
[2021-12-09] MEDS: NICOTINE 10 MG CARTRIDGE (INHALER) IH PRN ×2 (09:57→14:00)
[2021-12-09] MEDS: THIAMINE HCL 100 MG TABLET (FP) PO SCH (22:24)
[2021-12-09] MEDS: MELATONIN 5 MG TABLETS PO SCH (22:24)
[2021-12-09] MEDS: hydrOXYzine PAMOATE 50 MG CAPSULE (FP) PO PRN (22:24)
[2021-12-09] MEDS: METHYL SALICYLATE/MENTHOL OINT 30 GM TUBE TP SCH (22:25)
[2021-12-09] MEDS: LIDOCAINE PATCH REMOVAL MC SCH (22:25)
[2021-12-09] MEDS: SUVOREXANT 5 MG TABLET PO PRN (22:47)
[2021-12-10] MEDS: NALTREXONE HCL 50 MG TABLET PO SCH (10:04)
[2021-12-10] MEDS: LIDOCAINE 5% TOPICAL PATCH TP SCH (10:04)
[2021-12-10] MEDS: NICOTINE 21 MG/24 HOURS TOPICAL PATCH TD SCH (10:04)
[2021-12-10] MEDS: PRENATAL VITAMINS W/ FOLIC ACID TABLET (FP) PO SCH (10:04)
[2021-12-10] MEDS: GABAPENTIN 100 MG CAPSULE PO SCH ×2 (10:04→21:57)
[2021-12-10] MEDS: IBUPROFEN 600 MG TABLET (FP) PO PRN (10:06)
[2021-12-10] MEDS: BACLOFEN 10 MG TABLET (FP) PO PRN ×2 (10:07→21:57)
[2021-12-10] MEDS: NICOTINE 10 MG CARTRIDGE (INHALER) IH PRN ×3 (10:19→22:20)
[2021-12-10] MEDS: LIDOCAINE PATCH REMOVAL MC SCH (21:54)
[2021-12-10] MEDS: METHYL SALICYLATE/MENTHOL OINT 30 GM TUBE TP SCH (21:54)
[2021-12-10] MEDS: MELATONIN 5 MG TABLETS PO SCH (21:56)
[2021-12-10] MEDS: hydrOXYzine PAMOATE 50 MG CAPSULE (FP) PO PRN (21:56)
[2021-12-10] MEDS: THIAMINE HCL 100 MG TABLET (FP) PO SCH (21:57)
[2021-12-10] MEDS: SUVOREXANT 5 MG TABLET PO PRN (22:14)
[2021-12-11] MEDS: LIDOCAINE 5% TOPICAL PATCH TP SCH (09:48)
[2021-12-11] MEDS: GABAPENTIN 100 MG CAPSULE PO SCH ×2 (09:48→21:54)
[2021-12-11] MEDS: NALTREXONE HCL 50 MG TABLET PO SCH (09:48)
[2021-12-11] MEDS: PRENATAL VITAMINS W/ FOLIC ACID TABLET (FP) PO SCH (09:49)
[2021-12-11] MEDS: NICOTINE 21 MG/24 HOURS TOPICAL PATCH TD SCH (09:49)
[2021-12-11] MEDS: IBUPROFEN 600 MG TABLET (FP) PO PRN (09:52)
[2021-12-11] MEDS: BACLOFEN 10 MG TABLET (FP) PO PRN ×2 (09:54→21:55)
[2021-12-11] MEDS: NICOTINE 10 MG CARTRIDGE (INHALER) IH PRN ×2 (09:54→15:44)
[2021-12-11] MEDS: hydrOXYzine PAMOATE 50 MG CAPSULE (FP) PO PRN (21:54)
[2021-12-11] MEDS: METHYL SALICYLATE/MENTHOL OINT 30 GM TUBE TP SCH (21:54)
[2021-12-11] MEDS: LIDOCAINE PATCH REMOVAL MC SCH (21:55)
[2021-12-11] MEDS: MELATONIN 5 MG TABLETS PO SCH (21:55)
[2021-12-11] MEDS: THIAMINE HCL 100 MG TABLET (FP) PO SCH (21:56)
[2021-12-11] MEDS ORDERED: SUVOREXANT 15 MG TABLET PO PRN (22:00)
[2021-12-12] MEDS: NICOTINE 10 MG CARTRIDGE (INHALER) IH PRN ×2 (08:06→15:58)
[2021-12-12] MEDS: PRENATAL VITAMINS W/ FOLIC ACID TABLET (FP) PO SCH (10:04)
[2021-12-12] MEDS: NICOTINE 21 MG/24 HOURS TOPICAL PATCH TD SCH (10:04)
[2021-12-12] MEDS: GABAPENTIN 100 MG CAPSULE PO SCH ×2 (10:04→21:58)
[2021-12-12] MEDS: IBUPROFEN 600 MG TABLET (FP) PO PRN (10:04)
[2021-12-12] MEDS: BACLOFEN 10 MG TABLET (FP) PO PRN ×2 (10:05→21:58)
[2021-12-12] MEDS: hydrOXYzine PAMOATE 50 MG CAPSULE (FP) PO PRN ×2 (10:05→21:58)
[2021-12-12] MEDS ORDERED: NALTREXONE MICROSPHERES (VIVITROL) 380 MG DISP.SYRIN IM ONE (11:00)
[2021-12-12] MEDS: METHYL SALICYLATE/MENTHOL OINT 30 GM TUBE TP SCH (21:56)
[2021-12-12] MEDS: THIAMINE HCL 100 MG TABLET (FP) PO SCH (21:57)
[2021-12-12] MEDS: MELATONIN 5 MG TABLETS PO SCH (21:58)
[2021-12-13 07:10] VITALS: BP 113/72; PULSE 75; TEMP 97.1
[2021-12-13] MEDS: NICOTINE 10 MG CARTRIDGE (INHALER) IH PRN (08:21)
[2021-12-13] MEDS: NICOTINE 21 MG/24 HOURS TOPICAL PATCH TD SCH (09:42)
[2021-12-13] MEDS: PRENATAL VITAMINS W/ FOLIC ACID TABLET (FP) PO SCH (09:42)
[2021-12-13] MEDS: IBUPROFEN 600 MG TABLET (FP) PO PRN (09:43)
[2021-12-13] MEDS: GABAPENTIN 100 MG CAPSULE PO SCH (09:43)
[2021-12-13] MEDS: BACLOFEN 10 MG TABLET (FP) PO PRN (09:44)
[2021-12-13] MEDS: hydrOXYzine PAMOATE 50 MG CAPSULE (FP) PO PRN (09:44)
== END 2021-12-13 10:10 | disposition home or self-care (01) | DRG 772 ==
LOC: YASAS 13:47 → Y5N 13:49
PROVIDERS: ADMIT Allergy & Immunology; ATTEND Psychiatry & Neurology Pain Medicine
PROC: HZ42ZZZ Group Counseling for Substance Abuse Treatment, Cognitive-Behavioral (ICD-10-PCS; principal; 2021-11-16)
DX: F10.20 Alcohol dependence, uncomplicated (principal); F10.280 Alcohol dependence with alcohol-induced anxiety disorder; F13.20 Sedative, hypnotic or anxiolytic dependence, uncomplicated; F17.210 Nicotine dependence, cigarettes, uncomplicated; F10.282 Alcohol dependence with alcohol-induced sleep disorder; F41.8 Other specified anxiety disorders; G47.00 Insomnia, unspecified; F90.9 Attention-deficit hyperactivity disorder, unspecified type; M25.511 Pain in right shoulder; R74.8 Abnormal levels of other serum enzymes
CPT/HCPCS: 36415; 80053; J0475; J2315